=== PATIENT | female | born 1995 | race Caucasian/White ===

== ENCOUNTER → 2017-12-30 | Outpatient (CLI) | payer OTHER ==
[~2017-12-30] MED LIST: REME15TA PO
== END ==
LOC: HPND 08:54
PROVIDERS: ATTEND Obstetrics & Gynecology
DX: O99.333 Smoking (tobacco) complicating pregnancy, third trimester (principal); O98.513 Other viral diseases complicating pregnancy, third trimester
CPT/HCPCS: 76816

== ENCOUNTER 2018-01-19 05:05 | Inpatient (IN) | payer OTHER ==
[~2018-01-19] VITALS: Ht 170.2 cm; Wt 82.0 kg
[2018-01-19] MEDS ORDERED: LACTATED RINGER'S 1000 ML INJ 1,000 ML IV SCH (05:40)
[2018-01-19] MEDS ORDERED: LACTATED RINGER'S 1000 ML INJ 1,000 ML IV PRN (05:40)
[2018-01-19] MEDS ORDERED: OXYTOCIN 30 UNITS-500ML PREMIX 500 ML IV ONE (05:45)
[2018-01-19] MEDS ORDERED: LIDOCAINE HCL 1% 50 ML VIAL I-DERMAL PRN (05:45)
[2018-01-19] MEDS ORDERED: PENICILLIN G POTASSIUM INJ 5,000,000 UNITS in SODIUM CHLORIDE 0.9% INJ 100 ML IV ONE (05:45)
[2018-01-19] MEDS ORDERED: LIDOCAINE HCL 1% 50 ML VIAL INFIL PRN (05:45)
[2018-01-19] MEDS ORDERED: SODIUM CHLORID 0.9% 500 ML INJ 500 ML IV PRN (05:45)
[2018-01-19] MEDS ORDERED: CITRIC ACID-SODIUM CITRATE LIQ 30 ML UDC PO SCH (05:45)
[2018-01-19] MEDS ORDERED: MINERAL OIL 10 ML VIAL TOPICAL PRN (05:45)
--- NOTE | 2018-01-19 05:45 | HHI.HP ---
HPI Chief Complaint Contractions Date Seen: January 19, 2018 Time Seen: 05:40 Travel History International Travel<30 Days: No Contact w/Intl Traveler<30Days: No Known Affected Area: No History of Present Illness HPI 22-year-old white female at 39 weeks [facility] and presents complaining of contractions that are painful, no bleeding or leakage of fluid. heart rate tracing is reactive and she is cate every 3 minutes. Weeks Gestation: 39 Para: 0 : 1 History Past Medical History Narrative Medical Hepatitis C Past Surgical History Narrative Surgical Tonsillectomy Social History Alcohol Use: No Tobacco Use: No Substance Abuse: No Allergies-Medications (Allergen,Severity, Reaction): Coded Allergies: cat dander (Unverified Allergy, Unknown, 04/08/17) iodine (Unverified Adverse Reaction, Severe, Anaphylaxis, 04/08/17) potassium iodide (Unverified Adverse Reaction, Severe, Anaphylaxis, ) povidone-iodine (Unverified Adverse Reaction, Severe, Anaphylaxis, 04/08/17 ) sodium iodide (Unverified Adverse Reaction, Severe, Anaphylaxis, 04/08/17) sodium iodide (Unverified Adverse Reaction, Severe, Anaphylaxis, 04/08/17) Uncoded Allergies: SEASONAL (Allergy, Unknown, 10/24/10) Home Meds Reported Medications Mirtazapine 15 mg (Remeron 15 mg) 15 Mg Tab, 1 TAB PO HS, TAB 05/24/16 Review of Systems General / Constitutional: No: Fever, Weight Gain, Chills, Other Eyes: No: Diploplia, Blurred Vision, Visual changes, Pain, Photophobia HENT: No: Headaches, Vertigo, Lightheadedness Cardiovascular: No: Irregular Rhythm, Chest Pain or Discomfort, Palpitations, Tachycardia, Syncope, Varicosities, Edema, Cyanosis Respiratory: No: Cough, Short of Breath, Other Gastrointestinal: Abdominal Pain, No: Nausea, Vomiting, Diarrhea Genitourinary: No: Decreased Urinary Output, Oliguria Musculoskeletal: No: Limited ROM, Weakness, Cramping, Edema, Pain Skin: No Rash, No Itching, No Dryness, No Lumps, No Change in Pigmentation, No Change in Nails, No Alopecia, No Lesions Neurologic: No: Weakness, Dizziness, Syncope, Focal Abnormalities, Coordination Problem, Headache, Slurred Speech, Seizures Psychiatric: No: Depression, Suicidal Ideations, Homicidal Ideation Endocrine: No: Heat Intolerance, Cold Intolerance, Polydipsia, Polyuria, Other Physical Exam Narrative GENERAL: Well-nourished, well-developed patient. SKIN: Warm and dry. HEAD: Normocephalic and atraumatic. EYES: No scleral icterus. No injection or drainage. ENT: No nasal drainage noted. Mucous membranes pink. Airway patent. NECK: Supple, trachea midline. No JVD. CARDIOVASCULAR: Regular rate and rhythm without murmurs, gallops, or rubs. RESPIRATORY: Breath sounds equal bilaterally. No accessory muscle use. BREASTS: Bilateral exam showed no masses , no retractions, no nipple discharge. ABDOMEN/GI: Abdomen soft, non-tender, bowel sounds present, no rebound, no guarding Gravid to [39-] weeks size Fundal Height: [39-] GENITOURINARY: External Genitalia: intact and normal in appearance BUS glands: [-] Cervix: [ant-] Dilatation: [5-] Effacement: [-80] Station: [-1] Presentation: [vtx-] Membranes: [intact ] Uterine Contractions: [q 3 min-] FHT's: Category: [1-] Baseline: [133-] Reactive: [R-] Variability: [mod-] Decels: [0-] EXTREMITIES: No cyanosis or edema. BACK: Nontender without obvious deformity. No CVA tenderness. NEUROLOGICAL: Awake and alert. Motor and sensory grossly within normal limits. Five out of 5 muscle strength in all muscle groups. Normal speech. Caprini VTE Risk Assessment Caprini VTE Risk Assessment: No/Low Risk (score <= 1) Caprini Risk Assessment Model Point Value = 1 Point Value = 2 Point Value = 3 Point Value = 5 Age 41-60 Minor surgery BMI > 25 kg/m2 Swollen legs Varicose veins or History of unexplained or recurrent spontaneous Oral contraceptives or hormone replacement Sepsis (< 1 month) Serious lung disease, including pneumonia (< 1 month) Abnormal pulmonary function Acute myocardial infarction Congestive heart failure (< 1 month) History of inflammatory bowel disease Medical patient at bed rest Age 61-74 Arthroscopic surgery Major open surgery (> 45 min) Laparoscopic surgery (> 45 min) Malignancy Confined to bed (> 72 hours) Immobilizing plaster cast Central venous access Age >= 75 History of VTE Family history of VTE Factor V Leiden Prothrombin [id number] Lupus anticoagulant Anticardiolipin antibodies Elevated serum homocysteine Heparin-induced thrombocytopenia Other congenital or acquired thrombophilia Stroke (< 1 month) Elective arthroplasty Hip, pelvis, or leg fracture Acute spinal cord injury (< 1 month) Prophylaxis Regimen Total Risk Factor Score Risk Level Prophylaxis Regimen 0-1 Low Early ambulation 2 Moderate Order ONE of the following: *Sequential Compression Device (SCD) *Heparin 5000 units SQ BID 3-4 Higher Order ONE of the following medications: *Heparin 5000 units SQ TID *Enoxaparin/Lovenox 40 mg SQ daily (WT < 150 kg, CrCl > 30 mL/min) *Enoxaparin/Lovenox 30 mg SQ daily (WT < 150 kg, CrCl > 10-29 mL/min) *Enoxaparin/Lovenox 30 mg SQ BID (WT < 150 kg, CrCl > 30 mL/min) AND/OR *Sequential Compression Device (SCD) 5 or more Highest Order ONE of the following medications: *Heparin 5000 units SQ TID (Preferred with Epidurals) *Enoxaparin/Lovenox 40 mg SQ daily (WT < 150 kg, CrCl > 30 mL/min) *Enoxaparin/Lovenox 30 mg SQ daily (WT < 150 kg, CrCl > 10-29 mL/min) *Enoxaparin/Lovenox 30 mg SQ BID (WT < 150 kg, CrCl > 30 mL/min) AND *Sequential Compression Device (SCD) Data Data Orders Orders Admit To Inpatient (01/19/18 ) Vital Signs (Adult) .Per protocol (01/19/18 05:40) Heart (01/19/18 05:40) Amnioinfusion (01/19/18 05:40) Urinary Catheter Management .ONCE (01/19/18 05:40) Diet Liquid (01/19/18 Breakfast) Lactated Ringer's 1000 Ml Inj (Lr 1000 M (01/19/18 05:40) Lactated Ringer's 1000 Ml Inj (Lr 1000 M (01/19/18 05:40) Sodium Chlorid 0.9% 500 Ml Inj (Ns 500 M (01/19/18 05:45) Sodium Chlor 0.9% 1000 Ml Inj (Ns 1000 M (01/19/18 06:00) Lidocaine 1% Inj (50 Ml) (Xylocaine 1% I (01/19/18 05:45) Citric Acid-Sodium Citrate Liq (Bicitra (01/19/18 05:45) Fentanyl Inj (Fentanyl Inj) (01/19/18 05:45) Fentanyl Inj (Fentanyl Inj) (01/19/18 05:45) Penicillin G Potassium Inj (Pfizerpen-G (01/19/18 05:45) Penicillin G Potassium Inj (Pfizerpen-G (01/19/18 09:45) Complete Blood Count With Diff (01/19/18 05:40) Hold Clot (01/19/18 05:40) Abo/Rh Blood Type (01/19/18 05:40) Urinalysis - C+S If Indicated (01/19/18 05:40) Drug Screen, Random Urine (01/19/18 05:40) Ob/Psych Drug Screen, Urine (01/19/18 05:40) Type And Screen (01/19/18 05:40) Hepatitis Profile (01/19/18 05:40) Resp Oxygen Non Rebreathe Mask (01/19/18 ) ^ Epidural / Intrathecal Infus (01/19/18 05:40) Oxytocin 30 Units-500ml Premix (Pitocin (01/19/18 05:45) Lidocaine 1% Inj (50 Ml) (Xylocaine 1% I (01/19/18 05:45) Light Mineral Oil (Muri-Lube Oil) (01/19/18 05:45) Comprehensive Metabolic Panel (01/19/18 05:41) Group B Strep: Positive Assessment/Plan Assessment and Plan Patient is 22-year-old white female at 39 weeks presents in active labor, cervix 5/80/-1/vertex, patient has a history of hepatitis C and is GBS positive Plan-admit to labor and delivery, managed labor appropriately, anticipate vaginal delivery Charlie Hernandez II, MD January 19, 2018 05:45
[2018-01-19] MEDS ORDERED: SODIUM CHLOR 0.9% 1000 ML INJ 1,000 ML IV PRN (06:00)
[2018-01-19 06:50] LABS: AUTOMATED NEUTROPHIL # 11.2 TH/MM3 (1.8-7.7); BASOPHIL % 0.2 % (0.0-2.0); EOSINOPHIL # 0.6 TH/MM3 (0-0.4); EOSINOPHIL % 3.9 % (0.0-4.0); HEMATOCRIT 34.6 % (35.0-46.0); HEMOGLOBIN 11.5 GM/DL (11.6-15.3); LYMPHOCYTE # 2.8 TH/MM3 (1.0-4.8); MEAN CELL VOLUME 80.6 FL (80.0-100.0); MEAN CORPUSCULAR HEMOGLOBIN 26.8 PG (27.0-34.0); MEAN CORPUSCULAR HGB CONC 33.3 % (32.0-36.0); MEAN PLATELET VOLUME 8.9 FL (7.0-11.0); MONO % 6.4 % (0.0-8.0); NEUT % 71.5 % (16.0-70.0); PLATELET COUNT 215 TH/MM3 (150-450); RED CELL DISTRIBUTION WIDTH 16.4 % (11.6-17.2); WHITE BLOOD COUNT 15.6 TH/MM3 (4.0-11.0)
[2018-01-19 07:02] LABS: BILIRUBIN, URINE NEG (NEG); BLOOD, URINE NEG (NEG); GLUCOSE,URINE NEG (NEG); KETONE, URINE NEG (NEG); MUCUS URINE FEW /lpf (OCC); NITRITE,URINE NEG (NEG); SQUAMOUS EPITHELIAL CELL URINE 1 /hpf (0-5); URINE COLOR YELLOW (YELLW/STRAW); URINE LEUKOCYTE ESTERASE TRACE (NEG)
[2018-01-19] MEDS ORDERED: fentaNYL 2MCG-BUPIV 0.125% INJ 150 ML EPIDURAL ONE (07:03)
[2018-01-19] MEDS ORDERED: LIDOCAINE 1.5%/EPINEPHrine 1:200,000 PF 5 ML AMP ONE (07:03)
[2018-01-19] MEDS ORDERED: ePHEDrine/NS 25 MG/5 ML SYRINGE ONE (07:03)
[2018-01-19 07:05] LABS: ALBUMIN 2.6 GM/DL (3.4-5.0); ALT (GPT) 44 U/L (9-42); AST (GOT) 32 U/L (16-38); BICARBONATE 19.9 MEQ/L (21.0-32.0); BLOOD UREA NITROGEN 7 MG/DL (7-18); CALCIUM 8.6 MG/DL (8.5-10.1); CHLORIDE 107 MEQ/L (98-107); CREATININE 0.59 MG/DL (0.50-1.00); GLOMERULAR FILTRATION RATE 130 ML/MIN (>89); GLUCOSE,RANDOM 82 MG/DL (74-106); SODIUM (NA) 139 MEQ/L (136-145)
[2018-01-19 07:07] LABS: ALKALINE PHOSPHATASE 175 U/L (45-117); TOTAL BILIRUBIN ADULT 0.3 MG/DL (0.2-1.0); TOTAL PROTEIN 6.9 GM/DL (6.4-8.2)
[2018-01-19] MEDS ORDERED: NO SYSTEM NARCOTICS PRN (07:45)
[2018-01-19] MEDS ORDERED: DO NOT ADMINISTER ANTICOAGULANTS PRN (07:45)
[2018-01-19] MEDS ORDERED: ePHEDrine/NS 25 MG/5 ML SYRINGE IV PUSH PRN (07:45)
[2018-01-19] MEDS ORDERED: fentaNYL 2MCG-BUPIV 0.125% 150 ML EPIDURAL PRN (07:45)
[2018-01-19] MEDS ORDERED: OXYTOCIN 30 UNITS-500ML PREMIX 500 ML IV PRN (08:45)
--- NOTE | 2018-01-19 08:50 | PD.LABORPN ---
Subjective Subjective Patient resting comfortably in bed. Epidural in place. Discussed AROM for augmentation of labor. Patient expressed understanding and agreed to plan. Objective Objective Pelvic Exam: Cervix: midposition Dilatation: 5cm Effacement: 80% Station: -1 Presentation: vertex Membranes: ruptured s/p AROM Uterine Contractions: q3-4 minutes FHT's: Category: I Baseline: 130s Reactive: +accels Variability: moderate Decels: none noted Weeks Gestation: 39 Assessment/Plan Assessment and Plan Patient is 22-year-old white female at 39/3 weeks presented in active labor - Cervix 5/80/-1/vertex, ruptured s/p AROM with clear fluids noted - Patient has a history of hepatitis C - GBS positive, continue penicillin per protocol - IUPC and FSE placed following AROM - Start Pitocin at 2-2-30 - Epidural in place - Continue expectant management sdw Dr. Hernandez and Julien Marie MD R2 January 19, 2018 08:50
[2018-01-19] MEDS ORDERED: PENICILLIN G POTASSIUM INJ 2,500,000 UNITS in SODIUM CHLORIDE 0.9% INJ 100 ML IV SCH (09:45)
[2018-01-19] MEDS: PENICILLIN G POTASSIUM INJ 2,500,000 UNITS in SODIUM CHLORIDE 0.9% INJ 100 ML IV SCH ×2 (10:15→14:00)
[2018-01-19] MEDS ORDERED: LIDOCAINE HCL 1% PF 30 ML VIAL ONE (15:50)
[2018-01-19] MEDS ORDERED: MEASLES, MUMPS, RUBELLA VACCINE 0.5 ML VIAL SQ ONE (16:00)
[2018-01-19] MEDS ORDERED: DIPHTH/TETANUS/ACEL PERTUSSIS (BOOSTER) 0.5 ML VIAL/PFS IM ONE (16:00)
--- NOTE | 2018-01-19 16:43 | PD.OB.DELI ---
Weeks gestation: 39 Active labor start date: January 19, 2018 Medical induction of labor?: Yes Artificial rupture of membrane: Yes Anesthesia: Epidural Episiotomy: None Vaginal Delivery: Normal Presentation: Occiput anterior Nuchal Cord: None Delayed cord clamping (45 sec): No : Male Delivery date: January 19, 2018 Delivery time: 16:22 One Minute : 8 Five Minute : 9 Weight: 3005g Placenta: Spontaneous delivery, Intact Repair: Chromic interrupted (bilateral labia minor tear at 11 and 1 o'clock, repaired) Additional Information Supervised by Dr. Cohen, inner labial tear repaired by Dr. Zuñiga and Trent Younger MD, R1 January 19, 2018 16:43
[2018-01-19] MEDS ORDERED: SODIUM CHLORIDE 0.9% FLUSH 10 ML FLUSH IV FLUSH PRN (16:45)
[2018-01-19] MEDS ORDERED: BENZOCAINE 20% TOPICAL SPRAY 60 ML CAN TOPICAL PRN (16:45)
[2018-01-19] MEDS ORDERED: ACETAMINOPHEN 325 MG TAB PO PRN (16:45)
[2018-01-19] MEDS ORDERED: OXYTOCIN 30 UNITS-500ML PREMIX 500 ML IV SCH (16:45)
[2018-01-19] MEDS ORDERED: ZOLPIDEM TARTRATE 5 MG TAB PO PRN (16:45)
[2018-01-19] MEDS ORDERED: ONDANSETRON ODT 4 MG TAB PO PRN (16:45)
[2018-01-19] MEDS ORDERED: WITCH HAZEL 50%/GLYCERIN 12.5% 40 PAD JAR TOPICAL PRN (16:45)
[2018-01-19] MEDS ORDERED: oxyCODONE/ACETAMINOPHEN 5 MG/325 MG TAB PO PRN ×2 (16:45)
[2018-01-19] MEDS ORDERED: ALUMINUM/MAGNESIUM/SIMETH 30 ML CUP PO PRN (16:45)
[2018-01-19] MEDS ORDERED: DOCUSATE SODIUM 50 MG/SENNA 8.6 MG TAB PO PRN (16:45)
[2018-01-19] MEDS ORDERED: LIDOCAINE HCL 1% PF 5 ML AMPULE ONE (16:55)
[2018-01-19] MEDS: IBUPROFEN 800 MG TAB PO PRN (18:09)
[2018-01-19] MEDS ORDERED: SODIUM CHLORIDE 0.9% FLUSH 10 ML FLUSH IV FLUSH SCH (21:00)
[2018-01-20] MEDS: PENICILLIN G POTASSIUM INJ 2,500,000 UNITS in SODIUM CHLORIDE 0.9% INJ 100 ML IV SCH ×2 (02:00→22:00)
--- NOTE | 2018-01-20 08:40 | HHI.OB ---
Subjective Post Day: 1 Remarks Patient was examined today, doing well, AFVSS overnight. day #1. Pain 3/10. Decreased lochia, stating it's less than a period, and mild dysuria. She is breast feeding, no breast tenderness.. Appetite good. No nausea or vomiting. has had flatus, but no bowel movement. Ambulating well. Denies calf pain, chest pain, shortness of breath, dizziness, or cough. She otherwise has no other complaints or concerns this morning. Objective Objective Remarks GENERAL: Well-nourished, well-developed patient. CARDIOVASCULAR: Regular rate and rhythm without murmurs, gallops, or rubs. RESPIRATORY: Breath sounds equal bilaterally. No accessory muscle use. ABDOMEN/GI: Abdomen soft, non-tender. Fundus: Firm, non-tender, palpated below the umbilicus. GENITOURINARY: Light to moderate bleeding. EXTREMITIES: No cyanosis or edema, non-tender, without signs of DVT. Medications and IVs Current Medications Medications (Trade) Dose Ordered Sig/Hollie Route Start Time Stop Time Status Last Admin Lactated Ringer's 1,000 ml @ 125 mls/hr Q8H IV 01/19/18 05:40 01/19/18 06:47 Lactated Ringer's 1,000 ml @ 3,000 mls/hr Q20M PRN IV 01/19/18 05:40 01/19/18 09:19 Sodium Chloride 1,000 ml @ 100 mls/hr Q10H PRN IV 01/19/18 06:00 (Xylocaine 1% Inj (50 ml)) 0.1 ml UNSCH X1 PRN I-DERMAL 01/19/18 05:45 01/22/18 05:44 (Bicitra Liq) 30 ml DIGITAL MEDIA DIRECTOR PO 01/19/18 05:45 01/23/18 05:44 (fentaNYL INJ) 50 mcg Q1H PRN IV PUSH 01/19/18 05:45 (fentaNYL INJ) 100 mcg Q1H PRN IV PUSH 01/19/18 05:45 (Xylocaine 1% Inj (50 ml)) 10 ml UNSCH X1 PRN INFIL 01/19/18 05:45 01/21/18 05:44 (Muri-Lube Oil) 10 ml UNSCH PRN TOPICAL 01/19/18 05:45 Fentanyl/ Bupivacaine/ Sodium Chlor 150 ml @ 0 mls/hr TITRATE PRN EPIDURAL 01/19/18 07:45 Oxytocin 500 ml @ 0 mls/hr TITRATE PRN IV 01/19/18 08:45 01/19/18 09:19 Penicillin G Potassium 2906080 units/Sodium Chloride 100 ml @ 200 mls/hr Q4H IV 01/19/18 10:00 01/19/18 14:00 (NS Flush) 2 ml BID IV FLUSH 01/19/18 21:00 (NS Flush) 2 ml UNSCH PRN IV FLUSH 01/19/18 16:45 (Tylenol) 650 mg Q4H PRN PO 01/19/18 16:45 (Motrin) 800 mg Q8H PRN PO 01/19/18 16:45 01/19/18 18:09 (Percocet 5-325 Mg) 1 tab Q4H PRN PO 01/19/18 16:45 (Percocet 5-325 Mg) 2 tab Q4H PRN PO 01/19/18 16:45 (Americaine 20% Top Spr) 1 spray Q4H PRN TOPICAL 01/19/18 16:45 01/19/18 18:09 (Tucks Pads) 1 applic QID PRN TOPICAL 01/19/18 16:45 01/19/18 18:09 (Naomy-Colace) 2 tab Q12H PRN PO 01/19/18 16:45 (Ambien) 5 mg HS PRN PO 01/19/18 16:45 (Mag-Al Plus Susp Liq) 15 ml Q8H PRN PO 01/19/18 16:45 (Zofran Odt) 4 mg Q6H PRN PO 01/19/18 16:45 Assessment/Plan Problem List: (1) care following vaginal delivery ICD Codes: Z39.2 - Encounter for routine follow-up Plan: 22 year old PPD#1. - AFVSS - Encouraged OOB, as tolerated - Motrin prn pain - Advised pelvic rest x 6 weeks - breast feeding - Will f/u with OB provider in 6 weeks Gordy Briceno MS4 Trent Spaulding MD, R1 January 20, 2018 08:40
[2018-01-20] MEDS: IBUPROFEN 800 MG TAB PO PRN ×2 (09:55→21:17)
[2018-01-20 20:07] VITALS: BP 127/70; PULSE 98; RESP 17; TEMP 98
[2018-01-21] MEDS: PENICILLIN G POTASSIUM INJ 2,500,000 UNITS in SODIUM CHLORIDE 0.9% INJ 100 ML IV SCH (00:39)
--- NOTE | 2018-01-21 08:32 | HHI.OB ---
Subjective Post Day: 2 Remarks Patient seen and examined this morning. AFVSS overnight. day #2. Pain 5/10, but managed with Motrin. Decreased lochia. Denies dysuria. No breast tenderness. She is . Appetite good. No nausea or vomiting. She has passed flatus, but hasn't had a bowel movement. She has noticed some minimal decreased sensation across her inner thighs, but no dizziness or difficulty standing. Ambulating well. Denies calf pain, shortness of breath, or cough. She otherwise has no other complaints or concerns this morning. Objective Vitals/I&O Vital Signs Date Time Temp Pulse Resp B/P (MAP) Pulse Ox O2 Delivery O2 Flow Rate FiO2 01/20/18 20:07 98.0 98 17 127/70 (89) Objective Remarks GENERAL: Well-nourished, well-developed patient. CARDIOVASCULAR: Regular rate and rhythm without murmurs, gallops, or rubs. RESPIRATORY: Breath sounds equal bilaterally. No accessory muscle use. ABDOMEN/GI: Abdomen soft, non-tender. Fundus: Firm, non-tender, palpated below the umbilicus. GENITOURINARY: Light to moderate bleeding. EXTREMITIES: No cyanosis or edema, non-tender, without signs of DVT. Medications and IVs Current Medications Medications (Trade) Dose Ordered Sig/Hollie Route Start Time Stop Time Status Last Admin Lactated Ringer's 1,000 ml @ 125 mls/hr Q8H IV 01/19/18 05:40 01/19/18 06:47 Lactated Ringer's 1,000 ml @ 3,000 mls/hr Q20M PRN IV 01/19/18 05:40 01/19/18 09:19 Sodium Chloride 1,000 ml @ 100 mls/hr Q10H PRN IV 01/19/18 06:00 (Xylocaine 1% Inj (50 ml)) 0.1 ml UNSCH X1 PRN I-DERMAL 01/19/18 05:45 01/22/18 05:44 (Bicitra Liq) 30 ml MATERIALS MGMT TECH PO 01/19/18 05:45 01/23/18 05:44 (fentaNYL INJ) 50 mcg Q1H PRN IV PUSH 01/19/18 05:45 (fentaNYL INJ) 100 mcg Q1H PRN IV PUSH 01/19/18 05:45 (Muri-Lube Oil) 10 ml UNSCH PRN TOPICAL 01/19/18 05:45 Fentanyl/ Bupivacaine/ Sodium Chlor 150 ml @ 0 mls/hr TITRATE PRN EPIDURAL 01/19/18 07:45 Oxytocin 500 ml @ 0 mls/hr TITRATE PRN IV 01/19/18 08:45 01/19/18 09:19 Penicillin G Potassium [id number] units/Sodium Chloride 100 ml @ 200 mls/hr Q4H IV 01/19/18 10:00 01/19/18 14:00 (NS Flush) 2 ml BID IV FLUSH 01/19/18 21:00 (NS Flush) 2 ml UNSCH PRN IV FLUSH 01/19/18 16:45 (Tylenol) 650 mg Q4H PRN PO 01/19/18 16:45 (Motrin) 800 mg Q8H PRN PO 01/19/18 16:45 01/20/18 21:17 (Percocet 5-325 Mg) 1 tab Q4H PRN PO 01/19/18 16:45 (Percocet 5-325 Mg) 2 tab Q4H PRN PO 01/19/18 16:45 (Americaine 20% Top Spr) 1 spray Q4H PRN TOPICAL 01/19/18 16:45 01/19/18 18:09 (Tucks Pads) 1 applic QID PRN TOPICAL 01/19/18 16:45 01/19/18 18:09 (Naomy-Colace) 2 tab Q12H PRN PO 01/19/18 16:45 (Ambien) 5 mg HS PRN PO 01/19/18 16:45 (Mag-Al Plus Susp Liq) 15 ml Q8H PRN PO 01/19/18 16:45 (Zofran Odt) 4 mg Q6H PRN PO 01/19/18 16:45 (Depo-Provera Inj) 150 mg ONCE ONCE IM 01/21/18 08:30 01/21/18 08:31 UNV Assessment/Plan Problem List: (1) care following vaginal delivery ICD Codes: Z39.2 - Encounter for routine follow-up Plan: 22 year old PPD#2. - AFVSS - Encouraged OOB, as tolerated - Motrin prn for pain - Advised pelvic rest x 6 weeks - breast feeding - will get Depo for contraception - patient comfortable leaving today - Will f/u with OB provider in 6 weeks Gordy Briceno MS4 Trent Spaulding MD, R1 January 21, 2018 08:32
[2018-01-21] MEDS ORDERED: medroxyPROGESTERone ACETATE SUSP 150 MG/ML SYRINGE IM ONE (08:45)
[2018-01-21] MEDS ORDERED: IBUP1TAB7 PO (09:48)
--- NOTE | 2018-01-21 09:51 | HHI.DCPOC ---
Discharge Care Plan Diagnosis: (1) 39 weeks gestation of Goals to Promote Your Health * To prevent worsening of your condition and complications * To maintain your health at the optimal level Directions to Meet Your Goals Take your medications as prescribed Follow your dietary instruction Follow activity as directed Keep your appointments as scheduled Take your immunizations and boosters as scheduled If your symptoms worsen call your PCP, if no PCP go to Urgent Care Center or Emergency Room Smoking is Dangerous to Your Health. Avoid second hand smoke Call the 24-hour hour crisis hotline for domestic abuse at Trent Spaulding MD, R1 January 21, 2018 09:51
[2018-01-21] MEDS: IBUPROFEN 800 MG TAB PO PRN (09:53)
== END 2018-01-21 14:00 | disposition home or self-care (01) | DRG 774 ==
LOC: HOBED 05:05 → H2EB 05:44 → H1EA 21:02
PROVIDERS: ADMIT Obstetrics & Gynecology Maternal & Fetal Medicine; ATTEND Obstetrics & Gynecology Maternal & Fetal Medicine
PROC: 10E0XZZ Delivery of Products of Conception, External Approach (ICD-10-PCS; principal; 2018-01-19)
PROC: 0UQMXZZ Repair Vulva, External Approach (ICD-10-PCS; 2018-01-19)
PROC: 10907ZC Drainage of Amniotic Fluid, Therapeutic from Products of Conception, Via Natural or Artificial Opening (ICD-10-PCS; 2018-01-19)
PROC: 00HU33Z Insertion of Infusion Device into Spinal Canal, Percutaneous Approach (ICD-10-PCS; 2018-01-19)
PROC: 3E0R3BZ Introduction of Anesthetic Agent into Spinal Canal, Percutaneous Approach (ICD-10-PCS; 2018-01-19)
DX: O99.824 Streptococcus B carrier state complicating childbirth (principal); O98.42 Viral hepatitis complicating childbirth; Z37.0 Single live birth; B19.20 Unspecified viral hepatitis C without hepatic coma; Z3A.39 39 weeks gestation of pregnancy; O70.0 First degree perineal laceration during delivery
CPT/HCPCS: 59025; 80053; 80074; 80307; 81001; 85025; 86850; 86900; 86901; 90715; J1050; J2540; J2590; J7120